=== PATIENT | female | born 1950 | race Caucasian/White ===

== ENCOUNTER → 2017-09-20 | Outpatient (CLI) | payer MEDICARE ==
--- NOTE | 2017-09-20 13:54 | XR ---
EXAM TYPE: LUMBAR SPINE X RAY SERIES COMPARISON: NONE HISTORY: Pain TECHNIQUE: 6 views are submitted including flexion-extension lateral views. FINDINGS: Alignment is anatomic. The pedicles are intact. The transverse processes are intact. There is no s pondylolysis or spondylolisthesis. Severe multilevel degenerative disc disease with vacuum disc. Mul tilevel facet arthropathy. There is minimal anterolisthesis of 4 on L5 and L5 on S1. Alignment is sta ble in flexion and extension. Nonspecific calcification right upper quadrant. Vascular calcification seen. IMPRESSION: 1. Severe degenerative disc disease with facet arthropathy and anterolisthesis of L4 on L5 and L5 on S1.
== END | disposition home or self-care (01) ==
LOC: RADXRMAIN 13:09
PROVIDERS: ATTEND Physical Medicine & Rehabilitation
DX: M51.17 Intervertebral disc disorders with radiculopathy, lumbosacral region (principal); M43.17 Spondylolisthesis, lumbosacral region; M46.97 Unspecified inflammatory spondylopathy, lumbosacral region
CPT/HCPCS: 72114

== ENCOUNTER → 2019-03-08 | Outpatient (CLI) | payer MEDICARE ==
--- NOTE | 2019-03-08 18:29 | US ---
EXAMINATION TYPE: US transvaginal DATE OF EXAM: 03/08/2019 COMPARISON: NONE CLINICAL HISTORY: Dysfunctional Bleeding on HRT N93.9. Vaginal bleeding for 5 weeks. Patient has been on HRT for 1.5 years. TECHNIQUE: Transvaginal (TV). Date of LMP: unknown EXAM MEASUREMENTS: Uterus: 6.6 x 4.6 x 6.3 cm Endometrial Stripe: 0.7cm Right Ovary: unable to visualize Left Ovary: unable to visualize 1. Uterus: heterogeneous 2. Endometrium: appears wnl 3. Right Ovary: Obscured by overlying bowel gas 4. Left Ovary: Obscured by overlying bowel gas 5. Bilateral Adnexa: appears wnl 6. Posterior cul-de-sac: wnl Few nabothian cysts are seen in the cervix on initial images. Retroverted heterogeneous uterus is pre sent. Endometrium does not appear significantly thickened and measures up to 7 mm in fundus which is within normal limits for patient on HRT. No free fluid in pelvic cul-de-sac. Neither ovary clearly se en. IMPRESSION: As above, no markedly abnormal or suspicious endometrial thickening seen.
== END | disposition home or self-care (01) ==
LOC: RADUSWWP 15:38
PROVIDERS: ATTEND Surgery Vascular Surgery
DX: N84.1 Polyp of cervix uteri (principal); N85.4 Malposition of uterus; Z79.890 Hormone replacement therapy
CPT/HCPCS: 76830